=== PATIENT | female | born 1965 | race Caucasian/White ===

== ENCOUNTER 2020-09-10 15:53 | Outpatient (CLI) | payer OTHER, SELFPAY ==
--- NOTE | ~2020-09-10 | MM_ITS ---
EXAMINATION: MM screening [facility] BI w ade HISTORY: Screening mammogram TECHNIQUE: Craniocaudal and mediolateral oblique 3-D tomosynthesis images were obtained and synthetic 2-D images were generated. CAD analysis was submitted and interpreted. COMPARISON: 02/02/2019, 01/30/2018, 01/27/2017 BREAST PARENCHYMAL COMPOSITION: The breasts are heterogeneously dense, which may obscure small masses . FINDINGS: RIGHT BREAST: There are grouped indeterminate calcifications in the posterior third of the outer [address] 11 cm from the nipple. LEFT BREAST: There is no evidence of suspicious mass, calcification, or architectural distortion to s uggest malignancy. There has been no significant interval change. IMPRESSION: 1. Indeterminate right breast calcifications. 2. Magnification views are recommended. BI-RADS Category 0: Incomplete: Needs additional imaging evaluation. Reviewed, dictated and finalized at location A. ER CLIPPER
== END 2020-09-10 15:54 | disposition home or self-care (01) ==
LOC: ANHIMG 15:55
PROVIDERS: PCP Family Medicine; Visit Provider Nurse Practitioner
DX: Z12.31 Encounter for screening mammogram for malignant neoplasm of breast (principal); R92.8 Other abnormal and inconclusive findings on diagnostic imaging of breast
CPT/HCPCS: 77063; 77067

== ENCOUNTER 2020-10-07 12:23 | Outpatient (CLI) | payer OTHER, SELFPAY ==
--- NOTE | ~2020-10-07 | MM_ITS ---
EXAMINATION: MM diagnostic mammo unilat RT HISTORY: Indeterminate right breast calcifications on screening mammogram TECHNIQUE: Additional images of the right breast were performed. CAD analysis was submitted and inter preted. COMPARISON: 09/10/2020, 02/02/2019, 01/30/2018, 01/27/2017 FINDINGS: Grouped calcifications in the posterior third of the upper outer quadrant of the breast jennifer ear to have an amorphous morphology on the craniocaudal view and somewhat linear morphology on the me diolateral view, suggestive of milk of calcium. No suspicious mass is identified. IMPRESSION: 1. Probably benign right breast calcifications. 2. Recommend 6 month follow-up right diagnostic mammogram BI-RADS category 3, probably benign findings. Reviewed, dictated and finalized at location A. 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
== END 2020-10-07 12:24 | disposition home or self-care (01) ==
LOC: ANHIMG 12:25
PROVIDERS: PCP Family Medicine; Visit Provider Obstetrics & Gynecology Gynecology
DX: R92.8 Other abnormal and inconclusive findings on diagnostic imaging of breast (principal)
CPT/HCPCS: 77065

== ENCOUNTER 2021-01-02 08:17 | Emergency (ER) | payer OTHER, SELFPAY ==
--- NOTE | ~2021-01-02 | XR_ITS ---
EXAMINATION: XR finger 4th RT min 2V EXAM DATE: 01/02/2021 08:36 INDICATION: Injury 6 weeks ago, pain at the distal interphalangeal joint. TECHNIQUE: Right 4th finger frontal, lateral and oblique projections obtained and reviewed. There is no prior study for comparison. FINDINGS: There is suspicion of closed posttraumatic oblique fracture through the 4th middle phalanx, extending from the nonarticular portion of the distal interphalangeal joint through the proximal 3rd of the shaft. This is relatively difficult to use visualize, could indicate that it is subacute, rou sony healing. This finding has been indicated, marked on the examination for review, clinical correla tion. There is no displacement or angulation. IMPRESSION: Right 4th middle phalangeal nondisplaced fracture likely involving nonarticular portion o f distal interphalangeal joint. Reviewed, dictated and finalized at location D. K CLERK IMPRESSION: Right 4th middle phalangeal nondisplaced fracture likely involving nonarticular portion of distal interphalangeal joint.
[2021-01-02 08:23] VITALS: BP 138/80; PULSE 71; RESP 18; TEMP 36.6; O2SAT 99
--- NOTE | 2021-01-02 08:38 | PC.NURSE ---
PT DECLINED ICE FOR COMFORT
--- NOTE | 2021-01-02 08:48 | ED.UPPEXIN ---
HPI - Extremity Injury (Upper) General Chief Complaint: Extremity Injury, Upper Stated Complaint: Right ring finger injury Source: patient Mode of arrival: ambulatory Limitations: no limitations History of Present Illness HPI narrative: Patient is a 55-year-old female who presents complaining of right ring finger pain. She reports injury approximately a month ago while walking dog. She reports the leash tangled around all her fingers and dog took off. She reports initial swelling and bruising to right ring finger. Reports continuing pain over the past few weeks. She reports unable to flex finger at DIP and pain with extension. She denies other injuries. She denies significant medical history. She denies taking any [id number] medications for pain at this time. complaint: injury to: right and finger (Fourth) Related Data Home Medications Medication Instructions Recorded Confirmed propranolol 20 mg PO DAILY 01/02/21 01/02/21 Allergies Allergy/AdvReac Type Severity Reaction Status Date / Time No Known Allergies Allergy Verified 01/02/21 08:29 Review of Systems Review of Systems: Narrative: CONSTITUTIONAL: Denies fever, chills, or sweats. EYES: Denies visual changes, redness, or discharge. ENT: Denies rhinorrhea, congestion, sore throat, or otalgia. CARDIOVASCULAR: Denies chest pain, palpitations, or edema. RESPIRATORY: Denies cough or dyspnea. GASTROINTESTINAL: Denies abdominal pain, nausea, vomiting, or diarrhea. GENITOURINARY: Denies dysuria or hematuria. SKIN: Denies rash or itching. MUSCULOSKELETAL: Right fourth digit pain NEUROLOGIC: Denies headache, numbness, dizziness, or weakness. PSYCHIATRIC: Denies anxiety or depression. [facility] Past Medical History Medical History HTN (hypertension) Surgical History Surgical History H/O cervical polypectomy Family History Family History Father Hypertension Patient's father is in good health Mother Hypertension Patient's mother is in good health Sibling Patient's brother is in good health Grandparent Family history of malignant neoplasm of breast Family history of coronary artery disease Other Family history of malignant melanoma Social History Social History (Updated 01/02/21 @ 08:52 by PATTI Newby Smoking status: Never smoker Alcohol intake: current Substance use: never Living arrangements: with family Gender identity (if verbalized by the patient): Female Comments At the time of signature, I have reviewed and agree with nursing past medical, surgical, social, and family history unless otherwise noted. Please see nursing chart for further information. There is no relevant family history pertinent to the presenting complaint. Exam Narrative: Exam Narrative: GENERAL: Well-appearing, well-nourished, and in no acute distress. HEAD: Normocephalic, atraumatic. EYES: EOMI. No redness or drainage. Conjunctiva are normal. ENT: Mucous membranes pink and moist. CHEST: No respiratory distress. HEART: Regular rate and rhythm. EXTREMITIES: Mild edema to right fourth digit. Extension noted, unable to flex at DIP. SKIN: Warm, dry, no rash. NEURO: No focal deficits. Alert and oriented x3. Gait steady. PSYCH: Normal affect. No signs of depression or anxiety. Course Vital Signs Vital signs: Vital Signs Temperature 36.6 C 01/02/21 08:23 Pulse Rate 71 01/02/21 08:23 Respiratory Rate 18 01/02/21 08:23 Blood Pressure 138/80 01/02/21 08:23 Pulse Oximetry 99 01/02/21 08:23 Temperature 36.6 C 01/02/21 08:23 Pulse Rate 71 01/02/21 08:23 Respiratory Rate 18 01/02/21 08:23 Blood Pressure 138/80 01/02/21 08:23 Pulse Oximetry 99 01/02/21 08:23 MDM - Extremity Injury (Upper) MDM Narrative Medical decision making narra
== END 2021-01-02 09:07 | disposition home or self-care (01) ==
PROVIDERS: Emergency Provider Nurse Practitioner; PCP Family Medicine
DX: S62.664A Nondisplaced fracture of distal phalanx of right ring finger, initial encounter for closed fracture (principal); X58.XXXA Exposure to other specified factors, initial encounter; Y93.K1 Activity, walking an animal; I10 Essential (primary) hypertension
CPT/HCPCS: 29130; 73140; 99214; G0463

== ENCOUNTER 2021-04-09 13:20 | Outpatient (CLI) | payer OTHER, SELFPAY ==
--- NOTE | ~2021-04-09 | MM_ITS ---
EXAMINATION: MM diagnostic john RT w ade HISTORY: Six-month follow-up for probably benign right breast calcifications TECHNIQUE: Craniocaudal, mediolateral, and mediolateral oblique 3-D tomosynthesis images of the right breast were performed and synthetic 2-D images were generated. Magnification views are also obtained . CAD analysis was submitted and interpreted. COMPARISON: 09/27/2020, 09/10/2020, 02/02/2019, 01/30/2018 BREAST PARENCHYMAL COMPOSITION: The breasts are heterogeneously dense, which may obscure small masses . FINDINGS: There are stable grouped calcifications in the posterior third of the upper outer quadrant of the right breast 10 cm from the nipple which appear to demonstrate an amorphous morphology on the craniocaudal view and the predominantly linear morphology on the mediolateral view. These are again s uggestive of milk of calcium. No suspicious mass or architectural distortion is identified. IMPRESSION: 1. Probably benign right breast calcifications. 2. Recommend 6 month follow-up right diagnostic mammogram. BI-RADS category 3, probably benign findings. Reviewed, dictated and finalized at location A.
== END 2021-04-09 13:21 | disposition home or self-care (01) ==
LOC: ANHIMG 13:23
PROVIDERS: PCP Family Medicine; Visit Provider Obstetrics & Gynecology Gynecology
DX: R92.8 Other abnormal and inconclusive findings on diagnostic imaging of breast (principal)
CPT/HCPCS: 77061; 77065; G0279

== ENCOUNTER 2021-05-07 13:36 | Outpatient (CLI) | payer OTHER, SELFPAY ==
--- NOTE | ~2021-05-07 | US_ITS ---
EXAMINATION: US pelvic complete w TV DATE: 05/07/2021 14:49 INDICATION: Right pelvic pain. TECHNIQUE: Multiple transabdominal and transvaginal sonographic images of the pelvis were obtained. COMPARISON: Ultrasound 05/08/2018 FINDINGS: TRANSABDOMINAL ULTRASOUND: The uterus measures 7.2 x 6.8 x 3.4 cm. There is trace free fluid in the pelvis. TRANSVAGINAL ULTRASOUND: The endometrial complex measures 2 mm in thickness. There is a 1.7 cm hypoechoic subserosal fibroid. The right ovary is not visualized. The left ovary measures 1.4 x 1.7 x 0.6 cm. There is normal vascul ar flow in left ovary. IMPRESSION: 1. Right ovary not visualized. 2. Uterine fibroid. Reviewed, dictated and finalized at location A.
== END 2021-05-07 13:37 | disposition home or self-care (01) ==
PROVIDERS: PCP Family Medicine; Visit Provider Nurse Practitioner
DX: R10.2 Pelvic and perineal pain (principal); D25.9 Leiomyoma of uterus, unspecified
CPT/HCPCS: 76830; 76856

== ENCOUNTER 2021-10-27 12:53 | Outpatient (CLI) | payer OTHER, SELFPAY ==
--- NOTE | ~2021-10-27 | MM_ITS ---
EXAMINATION: MM diagnostic john BI w ade HISTORY: Six-month follow-up for probably benign right breast calcification TECHNIQUE: Craniocaudal, mediolateral, and mediolateral oblique 3-D tomosynthesis images of the breas ts were performed and synthetic 2-D images were generated. Magnification views of the right breast ar e also obtained. CAD analysis was submitted and interpreted. COMPARISON: 04/09/2021, 10/07/2020, 09/10/2020, 02/02/2019 BREAST PARENCHYMAL COMPOSITION: The breasts are heterogeneously dense, which may obscure small masses . FINDINGS: Right breast: Again seen are stable grouped calcifications in the posterior third of the upper outer quadrant of the right breast 10 cm from the nipple. These again appear to demonstrate somewhat amorph ous morphology on the craniocaudal view predominantly linear morphology on the mediolateral oblique v iew. No suspicious mass or architectural distortion are identified. Left breast: There is no suspicious mass, calcification, or architectural distortion of the left harini st to suggest malignancy. IMPRESSION: 1. Stable, probably benign right breast calcifications. 2. Given one year of interval stability, recommend 12 month followup right diagnostic mammogram. BI-RADS category 3, probably benign findings. Reviewed, dictated and finalized at location A. 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 Stable, probably benign right breast calcifications. 2. Given one year of interval stability, recommend 12 month followup right diag nostic mammogram. BI-RADS category 3, probably benign findings.
== END 2021-10-27 12:54 | disposition home or self-care (01) ==
LOC: ANHIMG 12:55
PROVIDERS: PCP Family Medicine; Visit Provider Obstetrics & Gynecology Gynecology
DX: R92.0 Mammographic microcalcification found on diagnostic imaging of breast (principal)
CPT/HCPCS: 77062; 77066; G0279

== ENCOUNTER 2022-07-20 11:19 | Outpatient (CLI) | payer OTHER, SELFPAY ==
--- NOTE | ~2022-07-20 | MMUS_ITS ---
EXAMINATION: MM diagnostic john BI w ade, US breast BI complete HISTORY: Stable probably benign right breast calcifications reported on 10/2021 bilateral diagnostic mammogram TECHNIQUE: ML, MLO and CC 3-D tomosynthesis images of both breasts were performed and synthetic 2-D i mages were generated. Magnification views of right breast in ML and CC projections. CAD analysis was submitted and interpreted. High resolution bilateral complete breast ultrasound including all 4 quadr ants and subareolar area of each breast was performed. COMPARISON: 10/2021 bilateral diagnostic mammography 620 and 10/07/2020 right diagnostic mammogram examinations 08/31/2020 bilateral screening mammogram BREAST PARENCHYMAL COMPOSITION: The breasts are heterogeneously dense, which may obscure small masses . FINDINGS: MAMMOGRAPHIC FINDINGS: Numerous bilateral benign-appearing microcalcifications are again noted, with little interval change since 09/10/2020. No interval suspicious mass, architectural distortion, malignant constipation, skin thickening or ret raction is detected. The heterogeneously dense stroma may obscure masses. Bilateral breast ultrasound examination was perf ormed. ULTRASOUND: Occasional probable breast cysts, including right breast 8:00 position 4 cm from nipple where a 3.7 x 4.9 x 5.3 mm sonolucency is noted with through transmission posterior enhancement and on the left at 4:00 1 cm from the nipple where a parallel circumscribed hypoechoic lesion without internal vascular ity or posterior shadowing is noted, measuring 4.2 x 5.8 x 7.1 mm. No suspicious mass or shadowing of either breast is detected. IMPRESSION: 1. Benign findings 2. Routine annual mammographic screening is recommended BI-RADS Category 2: Benign finding(s). Reviewed, dictated and finalized at location A. IMPRESSION: 1. Benign findings 2. Routine annual mammographic screening is recommended BI-RADS Category 2: Benign finding(s).
== END 2022-07-20 11:20 | disposition home or self-care (01) ==
PROVIDERS: PCP Family Medicine; Visit Provider Nurse Practitioner
DX: R92.8 Other abnormal and inconclusive findings on diagnostic imaging of breast (principal)
CPT/HCPCS: 76641; 77062; 77066; G0279

== ENCOUNTER 2022-08-19 07:51 | Outpatient (CLI) | payer OTHER, SELFPAY ==
--- NOTE | ~2022-08-19 | DEXA_ITS ---
Bone Density Report Name: NATO DOVE Age: 57 Sex: Female Ethnicity: White Date of : 1965 Indication: osteopenia; postmenopausal Referring Provider: MARIAN, MAYCOL Study: Bone densitometry was performed. Exam Date: August 19, 2022 Accession number: [id number] Bone Density: Region BMD T-score Z-score Classification AP Spine(L1-L4) 0.850 -1.8 -0.5 Osteopenia Femoral Neck (Left) 0.692 -1.4 -0.2 Osteopenia Total Hip (Left) 0.716 -1.9 -1.0 Osteopenia Femoral Neck (Right) 0.700 -1.3 -0.2 Osteopenia Total Hip (Right) 0.712 -1.9 -1.0 Osteopenia Total Hip Mean 0.714 -1.9 -1.0 Osteopenia World Health Organization criteria for BMD impression classify patients as: Normal (T-score at or above -1.0), Osteopenia (T-score between -1.0 and -2.5), or Osteoporosis (T-score at or below -2.5). 10-year Fracture Risk(1): Major Osteoporotic Fracture 6.6% Hip Fracture 0.5% Reported Risk Factors: [place] (), Neck BMD=0.692, BMI=21.1 (1) FRAX(R) Version 3.08. Fracture probability calculated for an untreated patient. Fracture probability may be lower if the patient has received treatment. Previous Exams: Region Exam Age BMD T-score BMD Change BMD Change Date g/cm2 vs Baseline vs Previous AP Spine (L1-L4) 08/19/2022 57 0.850 -1.8 -0.141 (-14.2% -0.141 (-14.2% 12/25/2015 50 0.991 -0.5 Total Hip(Left) 08/19/2022 57 0.716 -1.9 -0.107 (-13.0% -0.107 (-13.0% 12/25/2015 50 0.823 -1.0 Total Hip(Right) 08/19/2022 57 0.712 -1.9 -0.078 (-9.9%) -0.078 (-9.9%) 12/25/2015 50 0.790 -1.2 *Denotes significance at 95% confidence level, LSC for AP Spine = 0.022 g/cm2, LSC for Total Hip = 0.027 g/cm2 Clinical Information Provided by Patient: Has used the following medications: Calcium Patient maximum height was 67 Menopause Age: 51 Does not regularly consume dairy products Drinks caffeinated beverages Onset of menses at age 12 Number of children 0 Impression: The patient has low bone mass, based on the Left Total Hip T-score. The patient has an estimated ten-year risk of hip fracture of 0.5% and an estimated ten-year risk of major fracture of 6.6%, based on the WHO FRAX algorithm. The BMD for the AP Spine (L1-L4) decreased, changing by -14.2% since the last DXA exam. The BMD for the Total Hip(Left) decreased, changing by -13.0% since the last DXA exam. The BMD for the Total Hip(Right) decreased, changing by -9.9% si
== END 2022-08-19 07:52 | disposition home or self-care (01) ==
PROVIDERS: PCP Family Medicine; Visit Provider Nurse Practitioner
DX: Z78.0 Asymptomatic menopausal state (principal); M85.88 Other specified disorders of bone density and structure, other site; M85.852 Other specified disorders of bone density and structure, left thigh; M85.851 Other specified disorders of bone density and structure, right thigh
CPT/HCPCS: 77080

== ENCOUNTER 2023-03-20 09:16 | Emergency (ER) | payer OTHER, SELFPAY ==
--- NOTE | ~2023-03-20 | XR_ITS ---
EXAMINATION: XR wrist RT min 3V DATE: 03/20/2023 11:08 INDICATION: Disorder radius fracture status post reduction. TECHNIQUE: 3 views of right wrist were obtained. COMPARISON: Right wrist radiographs 03/20/2023 FINDINGS: There is a comminuted fracture of distal radius involving the distal radioulnar joint and d istal articular surface. The main distal fracture fragment demonstrates impaction and 14 degrees radi al angulation. The main distal volar fracture fragment demonstrates 7 mm volar displacement. There is excessive palmar tilt of the distal articular surface. There is an avulsion fracture of ulnar styloi d. There is mild osteoporosis of first carpometacarpal joint. Cast material is noted. IMPRESSION: 1. Comminuted fracture of distal radius with improvement in alignment. 2. Avulsion fracture of the ulnar styloid. Reviewed, dictated and finalized at location A.
--- NOTE | ~2023-03-20 | XR_ITS ---
EXAMINATION: XR wrist RT min 3V DATE: 03/20/2023 09:33 INDICATION: Right wrist pain. Fall. TECHNIQUE: 3 views of right wrist were obtained. COMPARISON: None. FINDINGS: There is a comminuted fracture of distal radius with involvement of the distal radioulnar j oint and distal articular surface. The main distal fracture fragment demonstrates palmar displacement , 9 mm shortening, and dorsal angulation. There is an avulsion fracture of the ulnar styloid. There i s mild osteoarthritis of first carpometacarpal joint. IMPRESSION: 1. Comminuted fracture of distal radius. 2. Avulsion fracture of the ulnar styloid. Reviewed, dictated and finalized at location A.
[2023-03-20 09:21] VITALS: BP 99/65; PULSE 50; RESP 18; TEMP 36.7; O2SAT 100
--- NOTE | 2023-03-20 10:03 | ED.UPPEXIN ---
HPI - Extremity Injury (Upper) General Chief Complaint: Extremity Injury, Upper <LOUIE Bellamy Last Filed: 03/20/23 18:14> Stated Complaint: rt wrist injury <LOUIE Bellamy Last Filed: 03/20/23 18:14> Time Seen by Provider: 03/20/23 09:22 <LOUIE Bellamy Last Filed: 03/20/23 18:14> Source: patient <LOUIE Bellamy Last Filed: 03/20/23 18:14> Mode of arrival: ambulatory <LOUIE Bellamy Last Filed: 03/20/23 18:14> Limitations: no limitations <LOUIE Bellamy Last Filed: 03/20/23 18:14> History of Present Illness HPI narrative: Patient is a 57-year-old female who presents to the ED with report of right wrist pain. Patient reports she was walking out of a coffee shop just prior to arrival and tripped over the curb. She tried to catch herself with her right wrist. She did not hit her head or lose consciousness. She complains of severe pain to her right wrist, deformity noted. No numbness or tingling. No other areas of pain. No wounds. <LOUIE Bellamy Last Filed: 03/20/23 18:14> Related Data Home Medications: Home Medications Medication Instructions Recorded Confirmed propranolol 20 mg tablet 20 mg PO DAILY 01/02/21 01/02/21 <LOUIE Bellamy Last Filed: 03/20/23 18:14> Allergies/Adverse Reactions: Allergies Allergy/AdvReac Type Severity Reaction Status Date / Time No Known Allergies Allergy Verified 03/20/23 09:34 <LOUIE Bellamy Last Filed: 03/20/23 18:14> Review of Systems Review of Systems: CONSTITUTIONAL: Denies fever, chills, or sweats. MUSCULOSKELETAL: See HPI. NEUROLOGIC: Denies HI, LOC, tingling, numbness, or weakness. <LOUIE Bellamy Last Filed: 03/20/23 18:14> All systems reviewed & are unremarkable except as noted in HPI and below <Irais Boss PA-C - Last Filed: 03/20/23 18:14> PMFSH Past Medical History Medical History: Medical History HTN (hypertension) <Irais Boss PA-C - Last Filed: 03/20/23 18:14> Surgical History Surgical History: Surgical History H/O cervical polypectomy <Irais Boss PA-C - Last Filed: 03/20/23 18:14> Family History Family History: Family History Father Hypertension Patient's father is in good health Mother Hypertension Patient's mother is in good health Sibling Patient's brother is in good health Grandparent Family history of malignant neoplasm of breast Family history of coronary artery disease Other Family history of malignant melanoma <Irais Boss PA-C - Last Filed: 03/20/23 18:14> Social History Social History: Social History Smoking status: Never smoker Alcohol intake: current Substance use: never Living arrangements: with family Gender identity (if verbalized by the patient): Female <Irais Boss PA-C - Last Filed: 03/20/23 18:14> Exam Narrative: GENERAL: Well appearing, well-nourished, non-toxic, in no acute distress. HEAD: Normocephalic, atraumatic. NECK: Supple. No adenopathy, no masses. RESPIRATORY: Airway patent, respirations nonlabored. Clear to auscultation bilaterally, no rales, rhonchi, wheezing. CARDIOVASCULAR: Regular rate and rhythm without murmurs, rubs, or gallops. Radial pulses 2+ and equal bilaterally. MUSCULOSKELETAL: Unable to move right wrist due to pain, able to wiggle right fingers. Colles' deformity noted. Diffuse tenderness to palpation throughout right wrist. Sensation intact. Good distal capillary refill. SKIN: Warm, dry, normal color. No rashes. Small abrasion to left first toe. NEURO: A&O X3. Speech mitchell
[2023-03-20] MEDS: SODIUM CHLORIDE 0.9% IV 1,000 ML 999 ML IV CONT (10:16)
[2023-03-20] MEDS: HYDROmorphone HCL INJ (*CRX) 1 MG/ML SYR 0.5 MG IV PUSH (10:20)
[2023-03-20 11:14] VITALS: BP 114/71; PULSE 63; RESP 18; O2SAT 100
[2023-03-20] MEDS: KETOROLAC 30 MG/ML VIAL (*BKC) IV PUSH (11:25)
[2023-03-20 11:40] VITALS: BP 131/76; PULSE 58; RESP 18; O2SAT 100
== END 2023-03-20 11:40 | disposition home or self-care (01) ==
PROVIDERS: Emergency Provider Physician Assistant; PCP Family Medicine
DX: S52.531A Colles' fracture of right radius, initial encounter for closed fracture (principal); S52.611A Displaced fracture of right ulna styloid process, initial encounter for closed fracture; W01.0XXA Fall on same level from slipping, tripping and stumbling without subsequent striking against object, initial encounter; I10 Essential (primary) hypertension
CPT/HCPCS: 25605; 73110; 96374; 96375; 99285; A4565; J1170; J1885; J7030

== ENCOUNTER 2023-03-21 14:29 | Emergency (ER) | payer OTHER, SELFPAY ==
[2023-03-21 14:31] VITALS: BP 176/76; PULSE 74; RESP 16; TEMP 36.3; O2SAT 100
--- NOTE | 2023-03-21 14:54 | ED.GENADULT ---
HPI - General Adult General Chief complaint: Extremity Problem,Nontraumatic Stated complaint: splint too tight Time Seen by Provider: 03/21/23 14:43 History of Present Illness HPI narrative: Patient is a 57-year-old female who presents ER with tingling to her right digits. She had a distal radius fracture reduced and splinted yesterday. She reports she slept with her wrist on her chest and when she was on her side she elevated on a pillow. She reports she has been doing housework and bending over and that her arm has been in her sling but hang below her heart. She has not noticed increased swelling in the hand and some tingling and so she rested for a couple of hours prior to coming here. No additional injury. She is concerned her splint may be too tight. Related Data Home Medications Medication Instructions Recorded Confirmed propranolol 20 mg tablet 20 mg PO DAILY 01/02/21 01/02/21 Allergies Allergy/AdvReac Type Severity Reaction Status Date / Time No Known Allergies Allergy Verified 03/21/23 14:29 Review of Systems Musculoskeletal: Musculoskeletal: Reports arthralgias, Reports joint swelling and Denies muscle cramps Integumentary/Breasts: Skin/Breast: Denies erythema and Denies rash Neurologic: Denies focal weakness and Reports numbness PMFSH Past Medical History Medical History HTN (hypertension) Surgical History Surgical History H/O cervical polypectomy Family History Family History Father Hypertension Patient's father is in good health Mother Hypertension Patient's mother is in good health Sibling Patient's brother is in good health Grandparent Family history of malignant neoplasm of breast Family history of coronary artery disease Other Family history of malignant melanoma Social History Social History Smoking status: Never smoker Alcohol intake: current Substance use: never Living arrangements: with family Gender identity (if verbalized by the patient): Female Exam Narrative: GENERAL: Well-appearing, well-nourished, and in no acute distress. HEAD: Normocephalic, atraumatic. HEART: Regular rate and rhythm. Normal peripheral pulses. EXTREMITIES: Right upper extremity with some bruising up to the PIPs of the fingers from extension radius fracture. Patient also has an abrasion near the first MTP. There is brisk capillary fill and sensation intact in the digits of the right hand. Flexion extension of the fingers intact. SKIN: Warm, dry, no rash. NEURO: Alert and oriented x3. PSYCH: Normal mood and affect. Course Course Emergency Course: Patient feels much improved after having the splint loosened. I have educated patient on keeping her hand/wrist elevated and readjusted her sling for her which was causing her to dangle her arm to lobe. I have encouraged her to decrease her activity around the home and to follow-up with her orthopedic surgeon. Vital Signs Vital signs: Vital Signs Temperature 97.4 F L 03/21/23 14:31 Pulse Rate 74 03/21/23 14:31 Respiratory Rate 16 03/21/23 14:31 Blood Pressure 176/76 H 03/21/23 14:31 Pulse Oximetry 100 03/21/23 14:31 Oxygen Delivery Room Air 03/21/23 14:31 Temperature 97.4 F L 03/21/23 14:31 Pulse Rate 74 03/21/23 14:31 Respiratory Rate 16 03/21/23 14:31 Blood Pressure 176/76 H 03/21/23 14:31 Pulse Oximetry 100 03/21/23 14:31 Oxygen Delivery Room Air 03/21/23 14:31 Medical Decision Making Vital Signs Vital Signs: Vital Signs Temperature 97.4 F L 03/21/23 14:31 Pulse Rate 74 03/21/23 14:31 Respiratory Rate 16 03/21/23 14:31 Blood Pressure 176/76 H 03/21/23 14:31 Pulse Oximetry 100 03/21/23 14:31 Oxygen Delivery Room
== END 2023-03-21 15:05 | disposition home or self-care (01) ==
PROVIDERS: Emergency Provider Emergency Medicine; PCP Family Medicine
DX: R22.31 Localized swelling, mass and lump, right upper limb (principal); S52.501D Unspecified fracture of the lower end of right radius, subsequent encounter for closed fracture with routine healing; I10 Essential (primary) hypertension; X58.XXXD Exposure to other specified factors, subsequent encounter
CPT/HCPCS: 99281

== ENCOUNTER 2023-08-05 15:11 | Outpatient (CLI) | payer OTHER, SELFPAY ==
--- NOTE | ~2023-08-05 | MM_ITS ---
EXAMINATION: MM screening john BI w ade HISTORY: Screening mammogram TECHNIQUE: Craniocaudal and mediolateral oblique 3-D tomosynthesis images were obtained and synthetic 2-D images were generated. CAD analysis was submitted and interpreted. COMPARISON: 07/20/2022 bilateral diagnostic mammogram and bilateral complete breast ultrasound examina tion 10/27/2021 bilateral diagnostic mammogram 04/09/2021 right diagnostic mammogram 10/09/2020 diagnostic right mammogram 09/10/2020 bilateral screening mammogram BREAST PARENCHYMAL COMPOSITION: The breasts are heterogeneously dense, which may obscure small masses . FINDINGS: Scattered bilateral benign calcifications are again noted. There is no evidence of suspicio us mass, calcification, or architectural distortion to suggest malignancy in either breast. There has been no suspicious interval change. IMPRESSION: 1. No mammographic evidence of malignancy. 2. Recommend routine screening mammography in one year. BI-RADS Category 2: Benign finding(s). Reviewed, dictated and finalized at location A.
== END 2023-08-05 15:12 | disposition home or self-care (01) ==
LOC: ANHIMG 15:13
PROVIDERS: PCP Family Medicine; Visit Provider Obstetrics & Gynecology Gynecology
DX: Z12.31 Encounter for screening mammogram for malignant neoplasm of breast (principal)
CPT/HCPCS: 77063; 77067